=== PATIENT | female | born 1985 | race African-American/Black ===

== ENCOUNTER 2018-01-10 16:19 | Emergency (ER) | payer OTHER ==
[~2018-01-10] VITALS: Ht 167.6 cm; Wt 118.0 kg
[2018-01-10 17:53] LABS: BASOPHILS % 0.7 % (0.0-2.0); EOSINOPHILS % 1.6 % (0.0-5.0); HEMATOCRIT. 32.1 % (36.0-48.0); HEMOGLOBIN. 10.6 g/dL (12.0-16.0); LYMPHOCYTES % 24.4 % (20.0-50.0); MEAN CORPUSCULAR HEMOGLOBIN 28.6 pg (28.0-32.0); MEAN PLATELET VOLUME 8.4 fl (7.4-10.4); MONOCYTES % 5.6 % (2.0-8.0); NEUTROPHILS % 67.7 % (40.0-76.0); PLATELET 275 x1000/uL (130-400); RED BLOOD CELL COUNT 3.69 mill/uL (4.2-5.4); RED CELL DISTRIBUTION WIDTH 15.1 % (11.6-14.6)
[2018-01-10 17:58] LABS: CHLORIDE 108 mEq/L (98-107)
[2018-01-10 18:23] LABS: B-HCG QUANTITATIVE 1323 mIU/mL (<3)
[2018-01-10 18:46] LABS: CLARITY URINE CLEAR (CLEAR); COLOR URINE YELLOW (YELLOW); KETONES URINE NEGATIVE (NEGATIVE); LEUKOCYTE ESTERASE URINE TRACE (NEGATIVE); NITRITE URINE NEGATIVE (NEGATIVE); OCCULT BLOOD URINE 3+ (NEGATIVE); PROTEIN URINE NEGATIVE (NEGATIVE); SPECIFIC GRAVITY URINE 1.021 (1.005-1.030); UROBILINOGEN URINE 0.2 E.U./dL (0.2-1.0)
[2018-01-10 19:24] VITALS: BP 107/59
== END 2018-01-10 19:27 | disposition home or self-care (01) ==
LOC: ER 16:19
DX: O03.9 Complete or unspecified spontaneous abortion without complication (principal); O24.419 Gestational diabetes mellitus in pregnancy, unspecified control; Z3A.00 Weeks of gestation of pregnancy not specified
CPT/HCPCS: 36415; 76801; 80048; 81003; 81025; 84702; 85025; 99285

== ENCOUNTER 2019-08-21 00:55 | Emergency (ER) | payer OTHER ==
[~2019-08-21] VITALS: Ht 167.6 cm; Wt 112.0 kg
[2019-08-21] MEDS ORDERED: IBUPROFEN 600MG TABLET PO ONE (04:15)
[2019-08-21 06:20] VITALS: BP 157/79
== END 2019-08-21 06:21 | disposition home or self-care (01) ==
LOC: ER 00:55
DX: S09.8XXA Other specified injuries of head, initial encounter (principal); V49.49XA Driver injured in collision with other motor vehicles in traffic accident, initial encounter; Y93.89 Activity, other specified; Y92.89 Other specified places as the place of occurrence of the external cause; Y99.8 Other external cause status
CPT/HCPCS: 99282